=== PATIENT | male | born 1970 ===

== ENCOUNTER 2018-07-01 10:42 | Emergency (ER) | payer OTHER ==
[~2018-07-01] VITALS: Ht 175.3 cm; Wt 97.0 kg
[2018-07-01 11:23] LABS: MEAN CORPUSCULAR HEMOGLOBIN 33.4 pg (27.5-34.5); MEAN CORPUSCULAR HGB CONC 34.1 g/dL (33.2-36.2); MEAN CORPUSCULAR VOLUME 97.7 fL (81-97); MEAN PLATELET VOLUME 8.6 fL (7.4-10.4); PLATELET COUNT 228 x10^3/uL (130-400); RED BLOOD COUNT 4.46 x10^6/uL (4.38-5.82); RED CELL DISTRIBUTION WIDTH 12.4 % (9.4-14.8)
[2018-07-01 11:24] LABS: MD YES
[2018-07-01 11:30] LABS: ALANINE AMINOTRANSFERASE 136 U/L (12-78); ANION GAP 7 mmol/L (5-15); CALCIUM 9.1 mg/dL (8.5-10.1); CHLORIDE 104 mmol/L (98-107); CREATININE 1.14 mg/dL (0.7-1.3)
[2018-07-01 11:38] LABS: ALKALINE PHOSPHATASE 106 U/L (45-117); BILIRUBIN,TOTAL 0.8 mg/dL (0.2-1.0); TOTAL PROTEIN 7.6 g/dL (6.4-8.2)
--- NOTE | 2018-07-01 11:48 | NUR ---
Pt to 31 from lobby
--- NOTE | 2018-07-01 11:55 | NUR ---
PT TO ED FOR JOINT PAIN AND HAND SWELLING SINCE SUNDAY NIGHT. PT STATES WORSE PAIN WITH MOVEMENT. CONNECTED TO MONITOR. VSS. ALBS DRAWN PRIOR TO ROOM PLACEMENT. AWAITING EDMD ASSESSMENT.
[2018-07-01 12:23] LABS: BAND#(MANUAL) 0.36 x10^3/uL; BANDS%(MANUAL) 4 % (0-7); LYMPH#(MANUAL) 0.54 x10^3/uL (1-3.4); LYMPHS% (MANUAL) 6 % (22-44); MONOS#(MANUAL) 0.54 x10^3/uL (0.3-2.7); MONOS% (MANUAL) 6 % (2-9); SEG#(MANUAL) 7.56 x10^3/uL (1.8-6.8); SEGS% (MANUAL) 84 % (42-75)
[2018-07-01 12:24] LABS: <PLATELET ESTIMATE> ADEQUATE; <PLT MORPHOLOGY> NORMAL PLT MORPH; POLYCHROMASIA 1+
--- NOTE | 2018-07-01 12:25 | NUR ---
edmd to bedside for assessment.
[2018-07-01] MEDS ORDERED: HYDROcodone/APAP 5/325 TABLET ONE (12:38)
[2018-07-01 12:55] LABS: MICROSCOPIC NOT IND
[2018-07-01] MEDS ORDERED: HYDROcodone/APAP 5/325 TABLET PO ONE (13:00)
--- NOTE | 2018-07-01 13:15 | NUR ---
per lab, add on ASO will be delayed. lab will call ed when completed.
--- NOTE | 2018-07-01 13:15 | NUR ---
us complete. pt resting in room. vss. no needs at this time.
[2018-07-01 13:16] LABS: HCT (SEDRATE) 43.6 % (39.2-51.8)
[2018-07-01 13:17] VITALS: BP 118/75
[2018-07-01 13:30] LABS: CULTURE INDICATED? NO
[2018-07-01 13:48] LABS: ANTISTREPTOLYSIN-O TITER <200 IU/mL
[2018-07-02 12:51] LABS: ANA SCREEN POSITIVE (Negative); ANA TITER MIXED; ANTI-NUCLEAR ANTIBODY PATTERN MIXED
== END 2018-07-01 14:39 | disposition home or self-care (01) ==
LOC: ED 14:18
DX: R94.5 Abnormal results of liver function studies (principal); M13.0 Polyarthritis, unspecified
CPT/HCPCS: 36415; 76700; 80053; 81003; 83690; 84550; 85025; 85651; 86038; 86039; 86060; 86063; 86140; 99284